=== PATIENT | female | born 1990 | race American Indian/Alaskan Native ===

== ENCOUNTER 2018-01-29 17:34 | Emergency (ER) | payer SELFPAY ==
[2018-01-29 18:08] LABS: Basophils # (Auto) 0.1 K/mm3 (0.0-0.1); Basophils % (Auto) 0.5 % (0.0-1.8); Eosinophils # (Auto) 0.2 K/mm3 (0.0-0.4); Eosinophils % (Auto) 1.7 % (0.0-4.3); Hematocrit 30.7 % (30.3-42.9); Hemoglobin 9.3 gm/dl (10.1-14.3); Lymphocytes # (Auto) 2.7 K/mm3 (1.2-5.4); Lymphocytes % (Auto) 26.1 % (13.4-35.0); Mean Corpuscular HGB Conc 31 % (30-34); Mean Corpuscular Volume 80 fl (79-97); Monocytes # (Auto) 0.9 K/mm3 (0.0-0.8); Monocytes % (Auto) 8.4 % (0.0-7.3); Platelet Count 404 K/mm3 (140-440); Red Blood Count 3.83 M/mm3 (3.65-5.03); Red Cell Distribution Width 15.1 % (13.2-15.2)
[2018-01-29 18:18] LABS: Bilirubin,Urine NEG (Negative); Blood,Urine NEG (Negative); Color,Urine Yellow (Yellow); Mucus,Urine 3+ /HPF
[2018-01-29 18:20] LABS: HCG Qualitative,Urine Negative (Negative); Mean Corpuscular Hemoglobin 24 pg (28-32)
[2018-01-29 18:27] LABS: Alanine Aminotransferase 13 units/L (7-56); Albumin 4.1 g/dL (3.9-5); BUN/Creatinine Ratio 15; Blood Urea Nitrogen 9 mg/dL (7-17); Calcium 8.9 mg/dL (8.4-10.2); Hemolysis Index 0
[2018-01-29] MEDS ORDERED: ULTRAM PO ONE (20:31)
--- NOTE | 2018-01-29 20:56 | Emergency Department Report ---
- General Chief complaint: Pain General Stated complaint: LUMP ON LOWER RIGHT SIDE/URINATING BLOOD Time Seen by Provider: 01/29/18 20:03 Source: patient Mode of arrival: Ambulatory Limitations: No Limitations - History of Present Illness Initial comments: 27-year-old female past medical history herniated disks and neurology kidney stones presents with complaint of lesion on the skin on right flank midaxillary line. States that it is uncomfortable. Denies any chest pain or pleuritic chest pain or shortness of breath. Patient denies any trauma to area. Patient is awake alert and oriented 3. Patient is also asking for STD check. Patient states she is also craving things. Patient states she came to the ED because she does not have a primary care doctor. Primarily came to have this lump on her right flank evaluated. States it is intermittently uncomfortable and she has been taking Tylenol with minimal relief. complaint: lesion Onset/Timin -: month(s) Location: chest Severity: moderate Quality: aching Consistency: constant Improves with: none Worsens with: none Treatments Prior to Arrival: none - Related Data Previous Rx's Medication Instructions Recorded Last Taken Type Ibuprofen [Motrin] 800 mg PO Q8HR PRN #20 tablet 01/29/18 Unknown Rx traMADol [Ultram 50 MG tab] 50 mg PO Q6HR PRN #10 tablet 01/29/18 Unknown Rx Allergies Allergy/AdvReac Type Severity Reaction Status Date / Time No Known Allergies Allergy Unverified 01/29/18 17:40 Abscess Boil HPI - HPI Chief Complaint: Pain General Stated Complaint: LUMP ON LOWER RIGHT SIDE/URINATING BLOOD Time Seen by Provider: 01/29/18 20:03 Home Medications: Previous Rx's Medication Instructions Recorded Last Taken Type Ibuprofen [Motrin] 800 mg PO Q8HR PRN #20 tablet 01/29/18 Unknown Rx traMADol [Ultram 50 MG tab] 50 mg PO Q6HR PRN #10 tablet 01/29/18 Unknown Rx Allergies/Adverse Reactions: Allergies Allergy/AdvReac Type Severity Reaction Status Date / Time No Known Allergies Allergy Unverified 01/29/18 17:40 ED Review of Systems ROS: Stated complaint: LUMP ON LOWER RIGHT SIDE/URINATING BLOOD Other details as noted in HPI Constitutional: denies: chills, fever Eyes: denies: eye pain, eye discharge, vision change ENT: denies: ear pain, throat pain Respiratory: denies: cough, shortness of breath, wheezing Cardiovascular: denies: chest pain, palpitations Endocrine: no symptoms reported Gastrointestinal: denies: abdominal pain, nausea, diarrhea Genitourinary: denies: urgency, dysuria, discharge Musculoskeletal: denies: back pain, joint swelling, arthralgia Skin: as per HPI (soft rubbery lesion on the skin right flank). denies: rash, lesions Neurological: denies: headache, weakness, paresthesias Psychiatric: denies: anxiety, depression Hematological/Lymphatic: denies: easy bleeding, easy bruising ED Past Medical Hx - Past Medical History Previous Medical History?: Yes Hx Kidney Stones: Yes Additional medical history: Back pain, Herniated disc, Heavy menses, Right flank lump @ 5th intercoastal area, Endometriosis - Surgical History Past Surgical History?: Yes Additional Surgical History: Stan feet reconstruction, D&C @ age 11 - Social History Smoking Status: Current Every Day Smoker Substance Use Type: Alcohol, Marijuana, Non Opiate Pain - Medications Home Medications: Home Medications Medication Instructions Recorded Confirmed Last Taken Type Ibuprofen [Motrin] 800 mg PO Q8HR PRN #20 tablet 01/29/18 Unknown Rx traMADol [Ultram 50 MG tab] 50 mg PO Q6HR PRN #10 tablet 01/29/18 Unknown Rx ED Physical Exam - General Limitations: No Limitations General appearance: alert, in no apparent distress - Head Head exam: Present: atraumatic, normocephalic - Eye Eye exam: Present: normal appearance, PERRL, EOMI - ENT ENT exam: Present: mucous membranes moist - Neck Neck exam: Present: normal inspection - Respiratory Respiratory exam: Present: normal lung sounds bilaterally (lungs clear to auscultation bilaterally). Absent: respiratory distress - Cardiovascular Cardiovascular Exam: Present: regular rate, normal rhythm. Absent: systolic murmur, diastolic murmur, rubs, gallop - GI/Abdominal GI/Abdominal exam: Present: soft (abdomen soft nontender nondistended), normal bowel sounds - Extremities Exam Extremities exam: Present: normal inspection - Back Exam Back exam: Present: normal inspection - Neurological Exam Neurological exam: Present: alert, oriented X3, CN II-XII intact, normal gait - Psychiatric Psychiatric exam: Present: normal affect, normal mood - Skin Skin exam: Present: warm, dry, intact, normal color. Absent: rash - Expanded Skin Exam Expanded Type of lesion: Present: other (lipoma right flank) 1 - Palpable lipoma here approximately 2 x 3 cm, freely mobile. No fluctuance no erythema no signs of cellulitis ED Course Vital Signs 01/29/18 17:40 Temperature 98.4 F Pulse Rate 90 Respiratory 20 Rate Blood Pressure 128/84 O2 Sat by Pulse 100 Oximetry ED Medical Decision Making - Lab Data Result diagrams: 01/29/18 17:54 01/29/18 17:54 - Medical Decision Making A/P: Lipoma right flank 1- chest x-ray unremarkable, labs unremarkable, urinalysis unremarkable 2- referred patient to primary care [facility] an outpatient STD testing center. Referral to dermatology for lipoma 3- [email or web address] 4-Motrin when necessary, short course tramadol when necessary Critical care attestation.: If time is entered above; I have spent that time in minutes in the direct care of this critically ill patient, excluding procedure time. ED Disposition Clinical Impression: Musculoskeletal pain Lipoma Qualifiers: Lipoma location: trunk Qualified Code(s): D17.1 - Benign lipomatous neoplasm of skin and subcutaneous tissue of trunk Disposition: DC-01 TO HOME OR SELFCARE Is pt being admited?: No Does the pt Need Aspirin: No Condition: Stable Instructions: Lipoma (ED), Flank Pain (ED) Prescriptions: Ibuprofen [Motrin] 800 mg PO Q8HR PRN #20 tablet PRN Reason: Pain traMADol [Ultram 50 MG tab] 50 mg PO Q6HR PRN #10 tablet PRN Reason: Pain Referrals: [facility] [Outside] - 3-5 Days [facility] [Outside] - 3-5 Days [facility] [Provider Group] - 3-5 Days [facility] [Provider Group] - 3-5 Days Forms: Work/School Release Form(ED) Time of Disposition: 21:08
--- NOTE | 2018-01-29 21:11 | XRay Report ---
FINAL REPORT EXAM: XR CHEST ROUTINE 2V HISTORY: right rib cage with mass TECHNIQUE: Two views of the chest Comparison: None FINDINGS: Normal heart size. Lungs are clear and well expanded without focal infiltrate or consolidation. No pneumothorax. No pleural effusion. Imaged axial skeleton is unremarkable. There is minimal degenerative change of the upper thoracic vertebral bodies. There is no definite bony focal sclerotic or lytic lesion. There is lower cervical degenerative osteophytic change. IMPRESSION: Unremarkable chest x-ray. No definite bony abnormality identified by plain film.
[2018-01-29 21:18] VITALS: BP 133/66
== END 2018-01-29 21:17 | disposition home or self-care (01) ==
LOC: ED 17:34
DX: D17.5 Benign lipomatous neoplasm of intra-abdominal organs (principal)
CPT/HCPCS: 36415; 71046; 80053; 81001; 81025; 85025; 99284